=== PATIENT | male | born 1955 | race Caucasian/White ===

== ENCOUNTER 2019-03-15 08:20 | Day surgery (SDC) | payer BC ==
[~2019-03-15 08:20] MED LIST: Lactated Ringers 1,000 ML IV SCH; Sodium Chloride 0.9% 10 ML SDV IV PRN; Sodium Chloride 0.9% 10 ML Syringe FLUSH PRN; Sodium Chloride 0.9% 2.5 ML Syringe FLUSH PRN
[2019-03-15] MEDS ORDERED: Propofol 200 MG/20 ML SDV ONE ×2 (08:31→10:14)
[2019-03-15] MEDS ORDERED: Bupivacaine 0.5% 30 ML SDV ONE (09:44)
[2019-03-15] MEDS ORDERED: Lidocaine 1% 20 ML MDV ONE (09:45)
[2019-03-15] MEDS ORDERED: Heparin Sodium 100 Units/ML 3 ML Syringe ONE ×2 (09:45→11:27)
[2019-03-15] MEDS ORDERED: Iopamidol 200-M 10 ML vial ITHECAL ONE (09:45)
--- NOTE | 2019-03-15 09:59 | PCM.PREANE ---
Preanesthetic Assessment - Anesthesia/Transfusion/Family Hx Anesthesia History: Prior Anesthesia Without Reaction Family History of Anesthesia Reaction: No Transfusion History: No Prior Transfusion(s) Intubation History: Unknown - Review of Systems General: No Symptoms Pulmonary: No Symptoms Cardiovascular: No Symptoms Gastrointestinal: No Symptoms Neurological: No Symptoms Other: Reports: None - Physical Assessment NPO Status Date: 03/15/19 NPO Status Time: 03:00 O2 Sat by Pulse Oximetry: 100 Respiratory Rate: 16 Vital Signs: Last Vital Signs Temp 35.9 C 03/15/19 09:00 Pulse 85 03/15/19 09:00 Resp 16 03/15/19 09:00 BP 128/69 03/15/19 09:00 Pulse Ox 100 03/15/19 09:00 Height: 6 ft Weight: 71.668 kg ASA Class: 2 Mental Status: Alert & Oriented x3 Airway Class: Mallampati = 2 Dentition: Reports: Normal Dentition (small chip front incisor) Thyro-Mental Finger Breadths: 3 Mouth Opening Finger Breadths: 2 (small mouth) ROM/Head Extension: Full Lungs: Clear to Auscultation, Normal Respiratory Effort Cardiovascular: Regular Rate, Regular Rhythm - Allergies Allergies/Adverse Reactions: Allergies Allergy/AdvReac Type Severity Reaction Status Date / Time No Known Allergies Allergy Verified 03/11/19 11:15 - Blood Blood Available: No - Anesthesia Plan Pre-Op Medication Ordered: None - Acknowledgements Anesthesia Type Planned: MAC Pt an Appropriate Candidate for the Planned Anesthesia: Yes Alternatives and Risks of Anesthesia Discussed w Pt/Guardian: Yes Pt/Guardian Understands and Agrees with Anesthesia Plan: Yes PreAnesthesia Questionnaire HEENT History: Reports: None Cardiovascular History: Reports: None Respiratory History: Reports: None Gastrointestinal History: Reports: Other (See Below) Other Gastrointestinal History: colorectal cancer Genitourinary History: Reports: None Musculoskeletal History: Reports: Fracture Other Musculoskeletal History: states hx of multiple fractures Neurological History: Reports: None Psychiatric History: Reports: None Endocrine/Metabolic History: Reports: None Hematologic History: Reports: None Immunologic History: Reports: None Oncologic (Cancer) History: Reports: None Dermatologic History: Reports: None - Past Surgical History Head Surgeries/Procedures: Reports: None HEENT Surgical History: Reports: None Cardiovascular Surgical History: Reports: None Respiratory Surgical History: Reports: None GI Surgical History: Reports: Colostomy, Hernia, Inguinal Male Surgical History: Reports: None Endocrine Surgical History: Reports: None Neurological Surgical History: Reports: None Musculoskeletal Surgical History: Reports: None Oncologic Surgical History: Reports: None Dermatological Surgical History: Reports: None - SUBSTANCE USE Smoking Status *Q: Never Smoker Recreational Drug Use History: No - HOME MEDS Home Medications: Home Meds . [No Known Home Meds] 03/11/19 [History] - CURRENT (IN HOUSE) MEDS Current Meds: Current Medications Lactated Ringer's (Ringers, Lactated) 1,000 mls @ 125 mls/hr IV ASDIRECTED [facility] Last Admin: 03/15/19 08:50 Dose: 125 mls/hr Sodium Chloride (Saline Flush) 10 ml FLUSH ASDIRECTED PRN PRN Reason: Keep Vein Open Sodium Chloride (Saline Flush) 2.5 ml FLUSH ASDIRECTED PRN PRN Reason: Keep Vein Open Sodium Chloride (Saline Flush) 10 ml FLUSH ASDIRECTED PRN PRN Reason: Keep Vein Open Sodium Chloride (Saline Flush) 2.5 ml FLUSH ASDIRECTED PRN PRN Reason: Keep Vein Open Sodium Chloride (Normal Saline) 10 ml IV ASDIRECTED PRN PRN Reason: IV Use Discontinued Medications Bupivacaine HCl (Marcaine 0.5%) Confirm Administered Dose 30 ml .ROUTE .STK-MED ONE Stop: 03/15/19 09:45 Heparin Sodium (Porcine) (Heparin Lock Flush 100 Units/Ml) Confirm Administered Dose 300 unit .ROUTE .STK-MED ONE Stop: 03/15/19 09:46 Iopamidol (Isovue-M 200) Confirm Administered Dose 10 ml ITHECAL .STK-MED ONE Stop: 03/15/19 09:46 Lidocaine HCl (Xylocaine 1%) Confirm Administered Dose 20 ml .ROUTE .STK-MED ONE Stop: 03/15/19 09:46 Propofol (Diprivan 20 Ml) Confirm Administered Dose 200 mg .ROUTE .STK-MED ONE Stop: 03/15/19 08:32
[2019-03-15] MEDS ORDERED: Midazolam 1 MG/ML 2 ML SDV ONE (10:14)
[2019-03-15] MEDS ORDERED: Sodium Chloride 0.9% 20 ML ONE (11:56)
[2019-03-15] MEDS ORDERED: ceFAZolin 1 GM Vial ONE (11:56)
[2019-03-15] MEDS ORDERED: Phenylephrine/Normal Saline 100 MCG/ML 10 ML Syringe ONE (12:05)
[2019-03-15] MEDS ORDERED: fentaNYL 100 MCG/2 ML SDV ONE (12:12)
[2019-03-15] MEDS ORDERED: Octyl 2-Cyanoacrylate 1 Tube ONE (12:23)
--- NOTE | 2019-03-15 12:34 | PCM.OPNOTE ---
- General Post-Op/Procedure Note Date of Surgery/Procedure: 03/15/19 Operative Procedure(s): Port a cath placement Findings: RIJ port placement Pre Op Diagnosis: Colorectal cancer Post-Op Diagnosis: same Anesthesia Technique: General LMA Primary Surgeon: Doreen Erickson Fluid Replacement, Intraop: 1,300 EBL in mLs: 5 Condition: Good
--- NOTE | 2019-03-15 13:10 | CR ---
EXAMINATION: Portable chest radiograph. HISTORY: Portacatheter placement. FINDINGS: The trachea is midline. The cardiomediastinal silhouette is within normal limits. No pulmonary infiltrates, effusions or pneumothorax. Right-sided portacatheter is noted with tip ejecting over the SVC. Osseous structures appear unremarkable. IMPRESSION: No acute cardiopulmonary process.
--- NOTE | 2019-03-15 13:23 | PCM48HPAN ---
Post Anesthesia Note - EVALUATION WITHIN 48HRS OF ANESTHETIC Vital Signs in Normal Range: Yes Patient Participated in Evaluation: Yes Respiratory Function Stable: Yes Airway Patent: Yes Cardiovascular Function Stable: Yes Hydration Status Stable: Yes Pain Control Satisfactory: Yes Nausea and Vomiting Control Satisfactory: Yes Mental Status Recovered: Yes Pulse Rate: 67 SaO2: 97 Resp Rate: 16 Blood Pressure: 114/71
--- NOTE | 2019-03-15 15:39 | CR ---
EXAMINATION: Chest HISTORY: Port-A-Cath placement COMPARISON: None TECHNIQUE: Single view FINDINGS/IMPRESSION: Tip of the right portacatheter projects over the SVC.
--- NOTE | 2019-03-17 06:37 | OR ---
SURGEON: DOREEN ERICKSON MD DATE OF PROCEDURE: 03/15/2019 PREOPERATIVE DIAGNOSIS: Colorectal cancer. POSTOPERATIVE DIAGNOSIS: Colorectal cancer. PROCEDURE PERFORMED: Right internal jugular Port-A-Cath placement. PRIMARY SURGEON: Doreen Erickson MD. ANESTHESIA: General LMA. FLUIDS: 1300 mL of crystalloid. ESTIMATED BLOOD LOSS: 5 mL. FINDINGS: Right internal jugular Port-A-Cath placement under fluoroscopic and ultrasound guidance. COMPLICATIONS: None. INDICATIONS: The patient is a 64-year-old male who was recently diagnosed with advanced colorectal cancer. He came to see me for a port due to the need for chemotherapy. I explained the procedure, expected perioperative course, and risks including bleeding, infection, or damage to surrounding structures including hemothorax or pneumothorax. The patient verbalized understanding and wishes to proceed. PROCEDURE IN DETAIL: The patient was brought into the OR and placed on the OR table in supine position. A time-out was completed verifying the patient's name, age, date of , allergies, and procedure to be performed. General LMA anesthesia was induced. A shoulder roll was placed under the patient's shoulders and both arms were tucked at his side. The neck and chest were prepped and draped in usual standard fashion. Using an ultrasound, I identified the vascular anatomy at the right side of the neck. A photograph was taken of this ultrasound and placed in the patient's chart. I anesthetized the area overlying the right internal jugular vein with 1% lidocaine plain. I then anesthetized the area on the right chest wall and the tubing tract with the same lidocaine. Using ultrasound guidance, I placed a guide needle into the right internal jugular vein. A flush of venous blood was returned. A guidewire was placed down the needle into the superior vena cava. The needle was removed and the C-arm was brought in. This verified placement of the guidewire within the vena cava. I then turned my attention to the right upper chest wall. A 15 blade was used to make a 4 cm incision 2 fingerbreadths below the lateral clavicle. Cautery was used to dissect down to the level of the chest wall. A subcutaneous pocket was then created. A tunneling device was then used to tunnel the catheter tubing from the port site on the chest up to the guidewire insertion site on the neck. A vascular sheath and dilator were then placed over the guidewire. Using fluoroscopic guidance, I dilated up my vascular tract. The dilator and guidewire were removed and the vascular sheath left in place. The catheter tubing was then placed down the vascular sheath into the chest. The vascular sheath was then removed. Fluoroscopy was then used to guide the tubing into the superior vena cava. A good return of venous blood was noted on the opposite end of the catheter tubing. The catheter tubing was then trimmed and placed onto the Port-A-Cath device and locked in place. The port was then placed in the subcutaneous pocket. The port was then accessed and I had good return of venous blood. The port was then locked with 4 mL of heparinized saline. The anterior chest wall cavity was then closed with interrupted 3-0 Vicryl in the subcutaneous fat layer and the skin was closed with a running 4-0 Monocryl stitch. An interrupted 4-0 Monocryl stitch was used to close the insertion site on the neck. The wounds were then covered with Dermabond and sterile dressings were applied. All counts were complete and correct at the end of the case. The DICTATION ENDS HERE YANCI / BEVERLY /[id number]
--- NOTE | 2019-03-17 12:37 | OR ---
SURGEON: ROLANDA LLOYD MD DATE OF PROCEDURE: 03/15/2019 ADDENDUM: The patient was taken to the PACU in stable condition. A postoperative chest x- ray showed good position of the Port-A-Cath device in the SVC with no immediate complications. YANCI PAUL /[id number]
== END 2019-03-15 13:35 | disposition home or self-care (01) ==
LOC: MW.SDS 08:20
PROVIDERS: ATTEND Surgery
DX: C20 Malignant neoplasm of rectum (principal); Z93.3 Colostomy status
CPT/HCPCS: 36561; 71045; 76000; A9270; J0690; J1642; J2001; J2250; J2370; J2704; J3010; J3490; J7120; 00532; Q9966

== ENCOUNTER 2019-05-21 13:34 | Observation (INO) | payer BC ==
[2019-05-21] MEDS ORDERED: Sodium Chloride 0.9% 1,000 ML IV ONE (13:49)
--- NOTE | 2019-05-21 13:56 | EDM.PDOC ---
ED HPI GENERAL MEDICAL PROBLEM - General Chief Complaint: General Stated Complaint: SICK Time Seen by Provider: 05/21/19 13:35 Source of Information: Reports: Patient History Limitations: Reports: No Limitations - History of Present Illness INITIAL COMMENTS - FREE TEXT/NARRATIVE: History of present illness: []Patient has a recent history of cancer on his fourth round of chemotherapy. He had a fever of 103.5 yesterday and a temperature to 102.4 today in oncology clinic. He was sent to the ED for further evaluation of his fever. Review of systems: As per history of present illness and below otherwise all systems reviewed and negative. Past medical history: As per history of present illness and as reviewed below otherwise noncontributory. Surgical history: As per history of present illness and as reviewed below otherwise noncontributory. Social history: No reported history of drug or alcohol abuse. Family history: As per history of present illness and as reviewed below otherwise noncontributory. Physical exam: General: Well developed, well nourished in NAD HEENT: Atraumatic, normocephalic, pupils reactive, negative for conjunctival pallor or scleral icterus, mucous membranes moist, throat clear, neck supple, nontender, trachea midline. Lungs: Clear to auscultation, breath sounds equal bilaterally, chest nontender. Heart: S1S2, regular, negative for clicks, rubs, or JVD. Abdomen: Showing Colostomy, NABS, nondistended, nontender. Negative for masses or hepatosplenomegaly. Negative for costovertebral tenderness. Pelvis: Stable nontender. Genitourinary: Deferred. Rectal: Deferred. Extremities: Atraumatic, negative for cords or calf pain. Neurovascular unremarkable. Neuro: Awake, alert, oriented. Cranial nerves II through XII unremarkable. Cerebellum unremarkable. Motor and sensory unremarkable throughout. Exam nonfocal. Skin:warm and dry Diagnostics: Chest x-ray, blood cultures, CBC, chemistry, lactate acid, UA, urine culture Therapeutics: Levaquin IV ED Course: stable, Dr. Kelly agrees to admit patient or IV antibiotics Impression: Fever on chemotherapy Prescriptions: None Plan: Admit for IV antibiotics until culture results Definitive disposition and diagnosis as appropriate pending reevaluation and review of above. - Related Data Allergies Allergy/AdvReac Type Severity Reaction Status Date / Time No Known Allergies Allergy Verified 05/21/19 17:17 Home Meds: Home Meds Ondansetron HCl [Zofran] 8 mg PO Q8H PRN 05/21/19 [History] Prochlorperazine Maleate [Compazine] 10 mg PO Q6H PRN 05/21/19 [History] Past Medical History HEENT History: Reports: None Cardiovascular History: Reports: None Respiratory History: Reports: None Gastrointestinal History: Reports: Other (See Below) Other Gastrointestinal History: colorectal cancer Genitourinary History: Reports: None Musculoskeletal History: Reports: Fracture Other Musculoskeletal History: states hx of multiple fractures Neurological History: Reports: None Psychiatric History: Reports: None Endocrine/Metabolic History: Reports: None Hematologic History: Reports: None Immunologic History: Reports: None Oncologic (Cancer) History: Reports: None Dermatologic History: Reports: None - Past Surgical History Head Surgeries/Procedures: Reports: None HEENT Surgical History: Reports: None Cardiovascular Surgical History: Reports: None Respiratory Surgical History: Reports: None GI Surgical History: Reports: Colostomy, Hernia, Inguinal Male Surgical History: Reports: None Endocrine Surgical History: Reports: None Neurological Surgical History: Reports: None Musculoskeletal Surgical History: Reports: None Oncologic Surgical History: Reports: None Dermatological Surgical History: Reports: None ED ROS GENERAL - Review of Systems Review Of Systems: See Below ED EXAM, GENERAL - Physical Exam Exam: See Below Course - Vital Signs Last Recorded V/S: Last Vital Signs Temp 98.3 F 05/21/19 16:25 Pulse 114 H 05/21/19 16:25 Resp 16 05/21/19 16:25 BP 89/52 L 05/21/19 16:25 Pulse Ox 95 05/21/19 16:25 - Orders/Labs/Meds Orders: Active Orders 24 hr Category Date Time Status Patient Status [ADT] Stat ADT 05/21/19 15:03 Active CULTURE BLOOD [BC] Stat Lab 05/21/19 13:45 Received CULTURE BLOOD [BC] Stat Lab 05/21/19 14:00 Received CULTURE URINE [RM] Routine Lab 05/21/19 14:35 Received Blood Culture x2 Reflex Set [OM.PC] Stat Oth 05/21/19 13:49 Ordered Medication Orders Heparin Sodium (Porcine) (Heparin Sodium) 5,000 units SUBCUT Q8H [facility] Meropenem/Sodium Chloride 1 gm (/ Premix) 50 mls @ 100 mls/hr IV Q8H [facility] Vancomycin HCl 1 gm/ Sodium (Chloride) 250 mls @ 250 mls/hr IV Q12H [facility] Sodium Chloride (Normal Saline) 1,000 mls @ 125 mls/hr IV ASDIRECTED [facility] Last Admin: 05/21/19 18:24 Dose: 125 mls/hr Vancomycin HCl (Pharmacy To Dose - Vancomycin) 1 dose .XX ASDIRECTED [facility] Labs: Laboratory Tests 05/21/19 05/21/19 05/21/19 Range/Units 13:45 13:45 13:45 WBC 3.44 L (4.0-11.0) K/uL RBC 4.69 (4.50-5.90) M/uL Hgb 11.9 L (13.0-17.0) g/dL Hct 38.6 (38.0-50.0) % MCV 82.3 (80.0-98.0) fL MCH 25.4 L (27.0-32.0) pg MCHC 30.8 L (31.0-37.0) g/dL RDW Std Deviation 69.7 H (28.0-62.0) fl RDW Coeff of Eyad 24 H (11.0-15.0) % Plt Count 227 (150-400) K/uL MPV 9.00 (7.40-12.00) fL Neut % (Auto) 73.8 (48.0-80.0) % Lymph % (Auto) 15.4 L (16.0-40.0) % [place] % (Auto) 3.5 (0.0-15.0) % Eos % (Auto) 6.4 (0.0-7.0) % Baso % (Auto) 0.9 (0.0-1.5) % Neut # (Auto) 2.5 (1.4-5.7) K/uL Lymph # (Auto) 0.5 L (0.6-2.4) K/uL [place] # (Auto) 0.1 (0.0-0.8) K/uL Eos # (Auto) 0.2 (0.0-0.7) K/uL Baso # (Auto) 0.0 (0.0-0.1) K/uL Nucleated RBC % 0.0 /100WBC Nucleated RBCs # 0 K/uL Lactate 2.7 H (0.20-2.00) mmol/L Sodium 137 (136-148) mmol/L Potassium 4.2 (3.5-5.1) mmol/L Chloride 102 (98-107) mmol/L Carbon Dioxide 23.6 (21.0-32.0) mmol/L BUN 13 (7.0-18.0) mg/dL Creatinine 1.1 (0.8-1.3) mg/dL Est Cr Clr Drug Dosing 71.82 mL/min Estimated GFR (MDRD) > 60.0 ml/min Glucose 95 (74-106) mg/dL Calcium 8.6 (8.5-10.1) mg/dL Total Bilirubin 0.3 (0.2-1.0) mg/dL AST 20 (15-37) IU/L ALT 18 (14-63) IU/L Alkaline Phosphatase 100 (46-116) U/L Total Protein 6.9 (6.4-8.2) g/dL Albumin 2.7 L (3.4-5.0) g/dL Globulin 4.2 H (2.6-4.0) g/dL Albumin/Globulin Ratio 0.6 L (0.9-1.6) Urine Color Urine Appearance Urine pH (5.0-8.0) Ur Specific [place] (1.001-1.035) Urine Protein (NEGATIVE) mg/dL Urine Glucose (UA) (NEGATIVE) mg/dL Urine Ketones (NEGATIVE) mg/dL Urine Occult Blood (NEGATIVE) Urine Nitrite (NEGATIVE) Urine Bilirubin (NEGATIVE) Urine Urobilinogen (<2.0) EU/dL Ur Leukocyte Esterase (NEGATIVE) Urine RBC (0-2/HPF) Urine WBC (0-5/HPF) Ur Epithelial Cells (NONE-FEW) Urine Bacteria (NEGATIVE) 05/21/19 Range/Units 14:35 WBC (4.0-11.0) K/uL RBC (4.50-5.90) M/uL Hgb (13.0-17.0) g/dL Hct (38.0-50.0) % MCV (80.0-98.0) fL MCH (27.0-32.0) pg MCHC (31.0-37.0) g/dL RDW Std Deviation (28.0-62.0) fl RDW Coeff of Eyad (11.0-15.0) % Plt Count (150-400) K/uL MPV (7.40-12.00) fL Neut % (Auto) (48.0-80.0) % Lymph % (Auto) (16.0-40.0) % [place] % (Auto) (0.0-15.0) % Eos % (Auto) (0.0-7.0) % Baso % (Auto) (0.0-1.5) % Neut # (Auto) (1.4-5.7) K/uL Lymph # (Auto) (0.6-2.4) K/uL [place] # (Auto) (0.0-0.8) K/uL Eos # (Auto) (0.0-0.7) K/uL Baso # (Auto) (0.0-0.1) K/uL Nucleated RBC % /100WBC Nucleated RBCs # K/uL Lactate (0.20-2.00) mmol/L Sodium (136-148) mmol/L Potassium (3.5-5.1) mmol/L Chloride (98-107) mmol/L Carbon Dioxide (21.0-32.0) mmol/L BUN (7.0-18.0) mg/dL Creatinine (0.8-1.3) mg/dL Est Cr Clr Drug Dosing mL/min Estimated GFR (MDRD) ml/min Glucose (74-106) mg/dL Calcium (8.5-10.1) mg/dL Total Bilirubin (0.2-1.0) mg/dL AST (15-37) IU/L ALT (14-63) IU/L Alkaline Phosphatase (46-116) U/L Total Protein (6.4-8.2) g/dL Albumin (3.4-5.0) g/dL Globulin (2.6-4.0) g/dL Albumin/Globulin Ratio (0.9-1.6) Urine Color YELLOW Urine Appearance SLT CLOUDY Urine pH 5.0 (5.0-8.0) Ur Specific [place] 1.020 (1.001-1.035) Urine Protein TRACE H (NEGATIVE) mg/dL Urine Glucose (UA) NEGATIVE (NEGATIVE) mg/dL Urine Ketones NEGATIVE (NEGATIVE) mg/dL Urine Occult Blood MODERATE H (NEGATIVE) Urine Nitrite NEGATIVE (NEGATIVE) Urine Bilirubin NEGATIVE (NEGATIVE) Urine Urobilinogen 0.2 (<2.0) EU/dL Ur Leukocyte Esterase LARGE H (NEGATIVE) Urine RBC 5-10 (0-2/HPF) Urine WBC 90-100 (0-5/HPF) Ur Epithelial Cells OCCASIONAL (NONE-FEW) Urine Bacteria FEW (NEGATIVE) Meds: Medications Generic Name Dose Route Start Last Admin Trade Name Freq PRN Reason Stop Dose Admin Heparin Sodium (Porcine) 5,000 units 05/21/19 22:00 Heparin Sodium SUBCUT Q8H [facility] Meropenem/Sodium Chloride 1 gm 50 mls @ 100 mls/hr 05/21/19 18:00 / Premix IV Q8H [facility] Vancomycin HCl 1 gm/ Sodium 250 mls @ 250 mls/hr 05/21/19 19:00 Chloride IV Q12H [facility] Sodium Chloride 1,000 mls @ 125 mls/hr 05/21/19 18:00 05/21/19 18:24 Normal Saline IV 125 mls/hr ASDIRECTED [facility] Administration Vancomycin HCl 1 dose 05/21/19 17:45 Pharmacy To Dose - Vancomycin .XX ASDIRECTED [facility] Discontinued Medications Generic Name Dose Route Start Last Admin Trade Name Freq PRN Reason Stop Dose Admin Acetaminophen 650 mg 05/21/19 14:35 05/21/19 15:24 Tylenol PO 05/21/19 14:36 650 mg NOW ONE Administration Sodium Chloride 1,000 mls @ 999 mls/hr 05/21/19 13:49 05/21/19 14:21 Normal Saline IV 05/21/19 14:49 999 mls/hr .Bolus ONE Administration Levofloxacin/Dextrose 500 mg/ 100 mls @ 100 mls/hr 05/21/19 14:09 05/21/19 14 :22 Premix IV 05/21/19 15:08 100 mls/hr ONETIME ONE Administration Departure - Departure Time of Disposition: 16:00 Disposition: Admitted As Inpatient 66 Condition: Good Clinical Impression: Fever Qualifiers: Fever type: unspecified Qualified Code(s): R50.9 - Fever, unspecified - Discharge Information *PRESCRIPTION DRUG MONITORING PROGRAM REVIEWED*: No *COPY OF PRESCRIPTION DRUG MONITORING REPORT IN PATIENT TUCKER: No - My Orders Last 24 Hours: My Active Orders 05/21/19 13:45 CULTURE BLOOD [BC] Stat 05/21/19 13:49 Blood Culture x2 Reflex Set [OM.PC] Stat 05/21/19 14:00 CULTURE BLOOD [BC] Stat 05/21/19 14:35 CULTURE URINE [RM] Routine 05/21/19 15:03 Patient Status [ADT] Stat - Assessment/Plan Last 24 Hours: My Active Orders 05/21/19 13:45 CULTURE BLOOD [BC] Stat 05/21/19 13:49 Blood Culture x2 Reflex Set [OM.PC] Stat 05/21/19 14:00 CULTURE BLOOD [BC] Stat 05/21/19 14:35 CULTURE URINE [RM] Routine 05/21/19 15:03 Patient Status [ADT] Stat
[2019-05-21] MEDS ORDERED: Levofloxacin/Dextrose 5%-Water 500 MG in Premix Bag 1 BAG IV ONE (14:09)
[2019-05-21 14:24] LABS: BLOOD UREA NITROGEN,BUN 13 mg/dL (7.0-18.0); CARBON DIOXIDE,CO2 23.6 mmol/L (21.0-32.0); CHLORIDE,CL 102 mmol/L (98-107); GLUCOSE RANDOM 95 mg/dL (74-106); POTASSIUM,K 4.2 mmol/L (3.5-5.1); SODIUM,NA 137 mmol/L (136-148)
[2019-05-21] MEDS ORDERED: Acetaminophen 325 MG Tab PO ONE (14:35)
--- NOTE | 2019-05-21 14:44 | CR ---
Chest: Portable view of the chest was obtained. Comparison: Prior chest x-ray of 03/15/19. Heart size appears within normal limits for portable technique. Tortuous thoracic aorta is noted. Right-sided infusion catheter is seen. Lungs are clear with no acute parenchymal change. Deformity of the left clavicle is seen compatible with old fracture. Mild deformity is seen of the distal right clavicle also felt compatible with old fracture. Inferior spurring is noted within both acromioclavicular joints. Impression: Nothing acute is appreciated on portable chest x-ray. Diagnostic code #2 MTDD
--- NOTE | 2019-05-21 17:48 | PCM.HP.2 ---
H&P History of Present Illness - General Date of Service: 05/21/19 Admit Problem/Dx: Admission Diagnosis/Problem Admission Diagnosis/Problem Fever - History of Present Illness Initial Comments - Free Text/Narative: 64 yo male with pmh of colorectal cancer, s/p bowel resection with colostomy due to obstructing mass. Patient reports they have not removed all the tumor and is currently receiving chemotherapy. He presented to the ED with complaints of fever. He also reports over the past several day increase in his ostomy output. HE denies any abdominal pain, cough, or shortness of breath. - Related Data Allergies/Adverse Reactions: Allergies Allergy/AdvReac Type Severity Reaction Status Date / Time No Known Allergies Allergy Verified 05/21/19 17:17 Home Medications: Home Meds Ondansetron HCl [Zofran] 8 mg PO Q8H PRN 05/21/19 [History] Prochlorperazine Maleate [Compazine] 10 mg PO Q6H PRN 05/21/19 [History] Past Medical History HEENT History: Reports: None Cardiovascular History: Reports: None Respiratory History: Reports: None Gastrointestinal History: Reports: Other (See Below) Other Gastrointestinal History: Colorectal cancer Genitourinary History: Reports: None Musculoskeletal History: Reports: Fracture Other Musculoskeletal History: States hx of multiple fractures Neurological History: Reports: None Psychiatric History: Reports: None Endocrine/Metabolic History: Reports: None Hematologic History: Reports: None Immunologic History: Reports: None Oncologic (Cancer) History: Reports: None Other Oncologic History: Rectal cancer Dermatologic History: Reports: None - Infectious Disease History Infectious Disease History: Reports: None - Past Surgical History Head Surgeries/Procedures: Reports: None HEENT Surgical History: Reports: None Cardiovascular Surgical History: Reports: None Respiratory Surgical History: Reports: None GI Surgical History: Reports: Colostomy, Hernia, Inguinal Other GI Surgeries/Procedures: Surgery in [place] in January 2019 for colostomy. Male Surgical History: Reports: None Endocrine Surgical History: Reports: None Neurological Surgical History: Reports: None Musculoskeletal Surgical History: Reports: None Oncologic Surgical History: Reports: None Dermatological Surgical History: Reports: None Social & Family History - Family History Family Medical History: Noncontributory - Tobacco Use Smoking Status *Q: Never Smoker Second Hand Smoke Exposure: Yes - Caffeine Use Caffeine Use: Reports: Soda, Tea - Recreational Drug Use Recreational Drug Use: No H&P Review of Systems - Review of Systems: Review Of Systems: ROS reveals no pertinent complaints other than HPI. Exam - Exam Exam: See Below - Vital Signs Vital Signs: Last Vital Signs Temp 36.8 C 05/21/19 16:25 Pulse 114 H 05/21/19 16:25 Resp 16 05/21/19 16:25 BP 89/52 L 05/21/19 16:25 Pulse Ox 95 05/21/19 16:25 Weight: 73.754 kg - Exam General: Alert, Oriented Lungs: Clear to Auscultation, Normal Respiratory Effort Cardiovascular: Regular Rate, Regular Rhythm GI/Abdominal Exam: Normal Bowel Sounds, Soft, Non-Tender, No Organomegaly, Other (colostomy in place) Extremities: Non-Tender, No Pedal Edema Skin: Warm, Dry, Intact - Patient Data Lab Results Last 24 hrs: Laboratory Results - last 24 hr 05/21/19 05/21/19 05/21/19 Range/Units 13:45 13:45 13:45 WBC 3.44 L (4.0-11.0) K/uL RBC 4.69 (4.50-5.90) M/uL Hgb 11.9 L (13.0-17.0) g/dL Hct 38.6 (38.0-50.0) % MCV 82.3 (80.0-98.0) fL MCH 25.4 L (27.0-32.0) pg MCHC 30.8 L (31.0-37.0) g/dL RDW Std Deviation 69.7 H (28.0-62.0) fl RDW Coeff of Eyad 24 H (11.0-15.0) % Plt Count 227 (150-400) K/uL MPV 9.00 (7.40-12.00) fL Neut % (Auto) 73.8 (48.0-80.0) % Lymph % (Auto) 15.4 L (16.0-40.0) % Bailey % (Auto) 3.5 (0.0-15.0) % Eos % (Auto) 6.4 (0.0-7.0) % Baso % (Auto) 0.9 (0.0-1.5) % Neut # (Auto) 2.5 (1.4-5.7) K/uL Lymph # (Auto) 0.5 L (0.6-2.4) K/uL Bailey # (Auto) 0.1 (0.0-0.8) K/uL Eos # (Auto) 0.2 (0.0-0.7) K/uL Baso # (Auto) 0.0 (0.0-0.1) K/uL Nucleated RBC % 0.0 /100WBC Nucleated RBCs # 0 K/uL Lactate 2.7 H (0.20-2.00) mmol/L Sodium 137 (136-148) mmol/L Potassium 4.2 (3.5-5.1) mmol/L Chloride 102 (98-107) mmol/L Carbon Dioxide 23.6 (21.0-32.0) mmol/L BUN 13 (7.0-18.0) mg/dL Creatinine 1.1 (0.8-1.3) mg/dL Est Cr Clr Drug Dosing 71.82 mL/min Estimated GFR (MDRD) > 60.0 ml/min Glucose 95 (74-106) mg/dL Calcium 8.6 (8.5-10.1) mg/dL Total Bilirubin 0.3 (0.2-1.0) mg/dL AST 20 (15-37) IU/L ALT 18 (14-63) IU/L Alkaline Phosphatase 100 (46-116) U/L Total Protein 6.9 (6.4-8.2) g/dL Albumin 2.7 L (3.4-5.0) g/dL Globulin 4.2 H (2.6-4.0) g/dL Albumin/Globulin Ratio 0.6 L (0.9-1.6) Urine Color Urine Appearance Urine pH (5.0-8.0) Ur Specific Sutton (1.001-1.035) Urine Protein (NEGATIVE) mg/dL Urine Glucose (UA) (NEGATIVE) mg/dL Urine Ketones (NEGATIVE) mg/dL Urine Occult Blood (NEGATIVE) Urine Nitrite (NEGATIVE) Urine Bilirubin (NEGATIVE) Urine Urobilinogen (<2.0) EU/dL Ur Leukocyte Esterase (NEGATIVE) Urine RBC (0-2/HPF) Urine WBC (0-5/HPF) Ur Epithelial Cells (NONE-FEW) Urine Bacteria (NEGATIVE) 10/04/19 Range/Units 14:35 WBC (4.0-11.0) K/uL RBC (4.50-5.90) M/uL Hgb (13.0-17.0) g/dL Hct (38.0-50.0) % MCV (80.0-98.0) fL MCH (27.0-32.0) pg MCHC (31.0-37.0) g/dL RDW Std Deviation (28.0-62.0) fl RDW Coeff of Eyad (11.0-15.0) % Plt Count (150-400) K/uL MPV (7.40-12.00) fL Neut % (Auto) (48.0-80.0) % Lymph % (Auto) (16.0-40.0) % Bailey % (Auto) (0.0-15.0) % Eos % (Auto) (0.0-7.0) % Baso % (Auto) (0.0-1.5) % Neut # (Auto) (1.4-5.7) K/uL Lymph # (Auto) (0.6-2.4) K/uL Bailey # (Auto) (0.0-0.8) K/uL Eos # (Auto) (0.0-0.7) K/uL Baso # (Auto) (0.0-0.1) K/uL Nucleated RBC % /100WBC Nucleated RBCs # K/uL Lactate (0.20-2.00) mmol/L Sodium (136-148) mmol/L Potassium (3.5-5.1) mmol/L Chloride (98-107) mmol/L Carbon Dioxide (21.0-32.0) mmol/L BUN (7.0-18.0) mg/dL Creatinine (0.8-1.3) mg/dL Est Cr Clr Drug Dosing mL/min Estimated GFR (MDRD) ml/min Glucose (74-106) mg/dL Calcium (8.5-10.1) mg/dL Total Bilirubin (0.2-1.0) mg/dL AST (15-37) IU/L ALT (14-63) IU/L Alkaline Phosphatase (46-116) U/L Total Protein (6.4-8.2) g/dL Albumin (3.4-5.0) g/dL Globulin (2.6-4.0) g/dL Albumin/Globulin Ratio (0.9-1.6) Urine Color YELLOW Urine Appearance SLT CLOUDY Urine pH 5.0 (5.0-8.0) Ur Specific Sutton 1.020 (1.001-1.035) Urine Protein TRACE H (NEGATIVE) mg/dL Urine Glucose (UA) NEGATIVE (NEGATIVE) mg/dL Urine Ketones NEGATIVE (NEGATIVE) mg/dL Urine Occult Blood MODERATE H (NEGATIVE) Urine Nitrite NEGATIVE (NEGATIVE) Urine Bilirubin NEGATIVE (NEGATIVE) Urine Urobilinogen 0.2 (<2.0) EU/dL Ur Leukocyte Esterase LARGE H (NEGATIVE) Urine RBC 5-10 (0-2/HPF) Urine WBC 90-100 (0-5/HPF) Ur Epithelial Cells OCCASIONAL (NONE-FEW) Urine Bacteria FEW (NEGATIVE) Result Diagrams: 05/22/19 05:50 05/22/19 05:50 Problem List Initiated/Reviewed/Updated: Yes Orders Last 24hrs: Active Orders 24 hr Category Date Time Status Patient Status [ADT] Stat ADT 05/21/19 15:03 Active Antiembolic Devices [RC] PER UNIT ROUTINE Care 05/21/19 17:47 Ordered Oxygen Therapy [RC] PRN Care 05/21/19 17:47 Ordered Up ad Teresa [RC] ASDIRECTED Care 05/21/19 17:46 Ordered VTE/DVT Education [RC] PER UNIT ROUTINE Care 05/21/19 17:47 Ordered Vital Signs [RC] Q4H Care 05/21/19 17:47 Ordered Regular Diet [DIET] Diet 05/21/19 Dinner Active Abdomen Pelvis wo Cont [CT] Routine Exams 05/21/19 17:29 Ordered BASIC METABOLIC PANEL,BMP [CHEM] AM Lab 05/22/19 05:11 Ordered BASIC METABOLIC PANEL,BMP [CHEM] AM Lab 05/23/19 05:11 Ordered CBC WITH AUTO DIFF [HEME] AM Lab 05/22/19 05:11 Ordered CBC WITH AUTO DIFF [HEME] AM Lab 05/23/19 05:11 Ordered CULTURE BLOOD [BC] Stat Lab 05/21/19 13:45 Received CULTURE BLOOD [BC] Stat Lab 05/21/19 14:00 Received CULTURE STOOL + CAMPY+SHIGATOX [RM] Routine Lab 05/21/19 17:47 Ordered CULTURE URINE [RM] Routine Lab 05/21/19 14:35 Received Clostridium Difficile [CDIFF TOX A+B] [OP] Routine Lab 05/21/19 17:47 Ordered LACTATE WITH REFLEX [BG] Q5H Lab 05/21/19 17:29 Ordered LACTATE WITH REFLEX [BG] Q5H Lab 05/21/19 22:29 Ordered LACTATE WITH REFLEX [BG] Q5H Lab 05/22/19 03:29 Ordered LACTATE WITH REFLEX [BG] Q5H Lab 05/22/19 08:29 Ordered WBC, STOOL [OP] Routine Lab 05/21/19 17:47 Ordered Heparin Sodium Med 05/21/19 18:00 Ordered 5,000 units SUBCUT Q8H Meropenem [Merrem] 1 gm Med 05/21/19 17:45 Ordered Sodium Chloride 0.9% [Normal Saline] 100 ml IV Q8H Pharmacy to Dose - Vancomycin Med 05/21/19 17:45 Ordered 1 dose .XX ASDIRECTED Sodium Chloride 0.9% @ 125 MLS/HR (1000ml) Med 05/21/19 18:00 Ordered Sodium Chloride 0.9% [Normal Saline] 1,000 ml IV ASDIRECTED Vancomycin 1 gm Med 05/21/19 19:00 Active Sodium Chloride 0.9% [Normal Saline (AdvBag)] 250 ml IV Q12H Blood Culture x2 Reflex Set [OM.PC] Stat Oth 05/21/19 13:49 Ordered Isolation [COMM] Stat Oth 05/21/19 17:48 Ordered Sequential Compression Device [OM.PC] Per Unit Routine Oth 05/21/19 17:47 Ordered Resuscitation Status Routine Resus Stat 05/21/19 17:46 Ordered Medication Orders Meropenem/Sodium Chloride 1 gm (/ Premix) 50 mls @ 100 mls/hr IV Q8H [facility] Vancomycin HCl 1 gm/ Sodium (Chloride) 250 mls @ 250 mls/hr IV Q12H [facility] Vancomycin HCl (Pharmacy To Dose - Vancomycin) 1 dose .XX ASDIRECTED [facility] Assessment/Plan Comment:: 64 yo male admitted for sepsis from UTI. Patient is immunocompromised due to chemotherapy. We will treat with broad spectrum antibitoics with vancomycin and meropenum. We hydrate adequately with IV fluids and trend lactic acid. Cultures are pending.
[2019-05-21] MEDS: Sodium Chloride 0.9% 1,000 ML IV SCH (18:24)
[2019-05-21] MEDS: Meropenem Premix 1 GM in Premix Bag 1 BAG IV SCH (18:49)
--- NOTE | 2019-05-21 19:19 | CT ---
INDICATION: Sepsis. Fever. Rule out stones. TECHNIQUE: Volumetric helical scanning of the abdomen and pelvis was performed without contrast material. Coronal and sagittal reconstructions were obtained. COMPARISON: None. FINDINGS: A left lower quadrant loop colostomy is demonstrated. Marked wall thickening of the mid to distal sigmoid colon with stranding of the surrounding fat is demonstrated as result of inflammation and/or neoplasm. The bowel is otherwise unremarkable. No urinary tract stone is evident. Both ureters appear to be obstructed to some degree by the inflammatory/neoplastic process in the pelvis. Mild to moderate hydroureter is noted on the left and mild hydroureter is noted on the right. There appears to be mild hydronephrosis bilaterally as well as parapelvic renal cysts bilaterally. Mild stranding about the left kidney is demonstrated. The renal parenchyma is unremarkable. The fat plane between the sigmoid colon and bladder is lost at the superior bladder wall is thickened. The prostate is unremarkable. No free fluid is evident. The liver is normal in size, shape and attenuation. No bile duct dilation is evident. The spleen is mildly enlarged. The adrenal glands are unremarkable. The pancreas is within normal limits. No lymphadenopathy is evident. The lung bases are clear. The heart is normal in size. IMPRESSION: 1. Left lower quadrant loop colostomy. 2. Marked wall thickening of the mid to distal sigmoid colon with stranding in the surrounding fat due to inflammation and/or neoplasm. 3. Both ureters partially obstructed by the pelvic inflammatory/neoplastic process, left greater than right. 4. Abnormal sigmoid colon contiguous with the superior bladder wall with bladder wall thickening. Fat plane between the sigmoid and bladder disrupted. 5. Mild splenomegaly. 6. Parapelvic renal cysts bilaterally. Please note that all CT scans at this facility use dose modulation, iterative reconstruction, and/or weight-based dosing when appropriate to reduce radiation dose to as low as reasonably achievable. Dictated by Philip Hope MD @ May 21 2019 6:53PM Signed by Dr. Philip Hope @ May 21 2019 7:17PM
[2019-05-21] MEDS: Heparin Sodium 5,000 Units/ML Vial SUBCUT SCH (23:05)
[2019-05-22] MEDS: Meropenem Premix 1 GM in Premix Bag 1 BAG IV SCH ×3 (01:48→18:02)
[2019-05-22] MEDS: Sodium Chloride 0.9% 1,000 ML IV SCH ×3 (04:14→23:14)
[2019-05-22] MEDS: Heparin Sodium 5,000 Units/ML Vial SUBCUT SCH ×3 (06:17→21:28)
[2019-05-22 06:50] LABS: BLOOD UREA NITROGEN,BUN 14 mg/dL (7.0-18.0); CARBON DIOXIDE,CO2 24.2 mmol/L (21.0-32.0); CHLORIDE,CL 104 mmol/L (98-107); GLUCOSE RANDOM 94 mg/dL (74-106); SODIUM,NA 136 mmol/L (136-148)
--- NOTE | 2019-05-22 10:10 | PCM.PN ---
- General Info Date of Service: 05/22/19 - Review of Systems Systems Review Comment:: feeling better, no fevers. - Patient Data Vitals - Most Recent: Last Vital Signs Temp 37.1 C 05/22/19 07:50 Pulse 67 05/22/19 07:50 Resp 16 05/22/19 07:50 BP 115/59 L 05/22/19 07:50 Pulse Ox 95 05/22/19 07:50 Weight - Most Recent: 73.754 kg I&O - Last 24 Hours: Intake & Output 05/21/19 05/22/19 05/22/19 22:59 06:59 14:59 Intake Total 100 1986 Output Total 1250 Balance 100 736 Lab Results Last 24 Hours: Laboratory Results - last 24 hr 05/21/19 05/21/19 05/21/19 Range/Units 13:45 13:45 13:45 WBC 3.44 L (4.0-11.0) K/uL RBC 4.69 (4.50-5.90) M/uL Hgb 11.9 L (13.0-17.0) g/dL Hct 38.6 (38.0-50.0) % MCV 82.3 (80.0-98.0) fL MCH 25.4 L (27.0-32.0) pg MCHC 30.8 L (31.0-37.0) g/dL RDW Std Deviation 69.7 H (28.0-62.0) fl RDW Coeff of Eyad 24 H (11.0-15.0) % Plt Count 227 (150-400) K/uL MPV 9.00 (7.40-12.00) fL Neut % (Auto) 73.8 (48.0-80.0) % Lymph % (Auto) 15.4 L (16.0-40.0) % Hitchcock % (Auto) 3.5 (0.0-15.0) % Eos % (Auto) 6.4 (0.0-7.0) % Baso % (Auto) 0.9 (0.0-1.5) % Neut # (Auto) 2.5 (1.4-5.7) K/uL Lymph # (Auto) 0.5 L (0.6-2.4) K/uL Hitchcock # (Auto) 0.1 (0.0-0.8) K/uL Eos # (Auto) 0.2 (0.0-0.7) K/uL Baso # (Auto) 0.0 (0.0-0.1) K/uL Nucleated RBC % 0.0 /100WBC Nucleated RBCs # 0 K/uL Lactate 2.7 H (0.20-2.00) mmol/L Sodium 137 (136-148) mmol/L Potassium 4.2 (3.5-5.1) mmol/L Chloride 102 (98-107) mmol/L Carbon Dioxide 23.6 (21.0-32.0) mmol/L BUN 13 (7.0-18.0) mg/dL Creatinine 1.1 (0.8-1.3) mg/dL Est Cr Clr Drug Dosing 71.82 mL/min Estimated GFR (MDRD) > 60.0 ml/min Glucose 95 (74-106) mg/dL Calcium 8.6 (8.5-10.1) mg/dL Total Bilirubin 0.3 (0.2-1.0) mg/dL AST 20 (15-37) IU/L ALT 18 (14-63) IU/L Alkaline Phosphatase 100 (46-116) U/L Total Protein 6.9 (6.4-8.2) g/dL Albumin 2.7 L (3.4-5.0) g/dL Globulin 4.2 H (2.6-4.0) g/dL Albumin/Globulin Ratio 0.6 L (0.9-1.6) Urine Color Urine Appearance Urine pH (5.0-8.0) Ur Specific [place] (1.001-1.035) Urine Protein (NEGATIVE) mg/dL Urine Glucose (UA) (NEGATIVE) mg/dL Urine Ketones (NEGATIVE) mg/dL Urine Occult Blood (NEGATIVE) Urine Nitrite (NEGATIVE) Urine Bilirubin (NEGATIVE) Urine Urobilinogen (<2.0) EU/dL Ur Leukocyte Esterase (NEGATIVE) Urine RBC (0-2/HPF) Urine WBC (0-5/HPF) Ur Epithelial Cells (NONE-FEW) Urine Bacteria (NEGATIVE) 05/21/19 05/21/19 05/21/19 Range/Units 14:35 18:20 22:43 WBC (4.0-11.0) K/uL RBC (4.50-5.90) M/uL Hgb (13.0-17.0) g/dL Hct (38.0-50.0) % MCV (80.0-98.0) fL MCH (27.0-32.0) pg MCHC (31.0-37.0) g/dL RDW Std Deviation (28.0-62.0) fl RDW Coeff of Eyad (11.0-15.0) % Plt Count (150-400) K/uL MPV (7.40-12.00) fL Neut % (Auto) (48.0-80.0) % Lymph % (Auto) (16.0-40.0) % Hitchcock % (Auto) (0.0-15.0) % Eos % (Auto) (0.0-7.0) % Baso % (Auto) (0.0-1.5) % Neut # (Auto) (1.4-5.7) K/uL Lymph # (Auto) (0.6-2.4) K/uL Hitchcock # (Auto) (0.0-0.8) K/uL Eos # (Auto) (0.0-0.7) K/uL Baso # (Auto) (0.0-0.1) K/uL Nucleated RBC % /100WBC Nucleated RBCs # K/uL Lactate 2.0 1.5 (0.20-2.00) mmol/L Sodium (136-148) mmol/L Potassium (3.5-5.1) mmol/L Chloride (98-107) mmol/L Carbon Dioxide (21.0-32.0) mmol/L BUN (7.0-18.0) mg/dL Creatinine (0.8-1.3) mg/dL Est Cr Clr Drug Dosing mL/min Estimated GFR (MDRD) ml/min Glucose (74-106) mg/dL Calcium (8.5-10.1) mg/dL Total Bilirubin (0.2-1.0) mg/dL AST (15-37) IU/L ALT (14-63) IU/L Alkaline Phosphatase (46-116) U/L Total Protein (6.4-8.2) g/dL Albumin (3.4-5.0) g/dL Globulin (2.6-4.0) g/dL Albumin/Globulin Ratio (0.9-1.6) Urine Color YELLOW Urine Appearance SLT CLOUDY Urine pH 5.0 (5.0-8.0) Ur Specific [place] 1.020 (1.001-1.035) Urine Protein TRACE H (NEGATIVE) mg/dL Urine Glucose (UA) NEGATIVE (NEGATIVE) mg/dL Urine Ketones NEGATIVE (NEGATIVE) mg/dL Urine Occult Blood MODERATE H (NEGATIVE) Urine Nitrite NEGATIVE (NEGATIVE) Urine Bilirubin NEGATIVE (NEGATIVE) Urine Urobilinogen 0.2 (<2.0) EU/dL Ur Leukocyte Esterase LARGE H (NEGATIVE) Urine RBC 5-10 (0-2/HPF) Urine WBC 90-100 (0-5/HPF) Ur Epithelial Cells OCCASIONAL (NONE-FEW) Urine Bacteria FEW (NEGATIVE) 05/22/19 05/22/19 Range/Units 05:50 05:50 WBC 3.90 L (4.0-11.0) K/uL RBC 3.95 L (4.50-5.90) M/uL Hgb 10.0 L (13.0-17.0) g/dL Hct 32.6 L (38.0-50.0) % MCV 82.5 (80.0-98.0) fL MCH 25.3 L (27.0-32.0) pg MCHC 30.7 L (31.0-37.0) g/dL RDW Std Deviation 69.5 H (28.0-62.0) fl RDW Coeff of Eyad 23 H (11.0-15.0) % Plt Count 183 (150-400) K/uL MPV 9.30 (7.40-12.00) fL Neut % (Auto) 64.9 (48.0-80.0) % Lymph % (Auto) 22.3 (16.0-40.0) % Hitchcock % (Auto) 7.4 (0.0-15.0) % Eos % (Auto) 4.6 (0.0-7.0) % Baso % (Auto) 0.8 (0.0-1.5) % Neut # (Auto) 2.5 (1.4-5.7) K/uL Lymph # (Auto) 0.9 (0.6-2.4) K/uL Hitchcock # (Auto) 0.3 (0.0-0.8) K/uL Eos # (Auto) 0.2 (0.0-0.7) K/uL Baso # (Auto) 0.0 (0.0-0.1) K/uL Nucleated RBC % 0.0 /100WBC Nucleated RBCs # 0 K/uL Lactate (0.20-2.00) mmol/L Sodium 136 (136-148) mmol/L Potassium 4.0 (3.5-5.1) mmol/L Chloride 104 (98-107) mmol/L Carbon Dioxide 24.2 (21.0-32.0) mmol/L BUN 14 (7.0-18.0) mg/dL Creatinine 1.0 (0.8-1.3) mg/dL Est Cr Clr Drug Dosing 77.85 mL/min Estimated GFR (MDRD) > 60.0 ml/min Glucose 94 (74-106) mg/dL Calcium 7.9 L (8.5-10.1) mg/dL Total Bilirubin (0.2-1.0) mg/dL AST (15-37) IU/L ALT (14-63) IU/L Alkaline Phosphatase (46-116) U/L Total Protein (6.4-8.2) g/dL Albumin (3.4-5.0) g/dL Globulin (2.6-4.0) g/dL Albumin/Globulin Ratio (0.9-1.6) Urine Color Urine Appearance Urine pH (5.0-8.0) Ur Specific [place] (1.001-1.035) Urine Protein (NEGATIVE) mg/dL Urine Glucose (UA) (NEGATIVE) mg/dL Urine Ketones (NEGATIVE) mg/dL Urine Occult Blood (NEGATIVE) Urine Nitrite (NEGATIVE) Urine Bilirubin (NEGATIVE) Urine Urobilinogen (<2.0) EU/dL Ur Leukocyte Esterase (NEGATIVE) Urine RBC (0-2/HPF) Urine WBC (0-5/HPF) Ur Epithelial Cells (NONE-FEW) Urine Bacteria (NEGATIVE) Jose Results Last 24 Hours: Microbiology 05/21/19 13:45 Anaerobic Blood Culture - Preliminary Blood - Venous 05/21/19 14:00 Anaerobic Blood Culture - Preliminary Blood - Venous - Lab Draw 05/21/19 20:05 Campylobacter Antigen Assay - Final Stool / Feces NEGATIVE CAMPYLOBACTER AG REFERENCE RANGE: NEGATIVE 05/21/19 20:05 Clostridium difficile Toxin A & B - Final Stool / Feces Negative for C.Diff Toxin/AG REFERENCE RANGE: NEGATIVE Stool for WBCs - Final POSITIVE FOR WBC'S REFERENCE RANGE: NO WBC SEEN Med Orders - Current: Current Medications Heparin Sodium (Porcine) (Heparin Sodium) 5,000 units SUBCUT Q8H [facility] Last Admin: 05/22/19 06:17 Dose: 5,000 units Meropenem/Sodium Chloride 1 gm (/ Premix) 50 mls @ 100 mls/hr IV Q8H [facility] Last Admin: 05/22/19 01:48 Dose: 100 mls/hr Vancomycin HCl 1 gm/ Sodium (Chloride) 250 mls @ 250 mls/hr IV Q12H [facility] Last Admin: 05/22/19 06:18 Dose: 250 mls/hr Sodium Chloride (Normal Saline) 1,000 mls @ 125 mls/hr IV ASDIRECTED [facility] Last Admin: 05/22/19 04:14 Dose: 125 mls/hr Vancomycin HCl (Pharmacy To Dose - Vancomycin) 1 dose .XX ASDIRECTED [facility] Discontinued Medications Acetaminophen (Tylenol) 650 mg PO NOW ONE Stop: 05/21/19 14:36 Last Admin: 05/21/19 15:24 Dose: 650 mg Sodium Chloride (Normal Saline) 1,000 mls @ 999 mls/hr IV .Bolus ONE Stop: 05/21/19 14:49 Last Admin: 05/21/19 14:21 Dose: 999 mls/hr Levofloxacin/Dextrose 500 mg/ (Premix) 100 mls @ 100 mls/hr IV ONETIME ONE Stop: 05/21/19 15:08 Last Admin: 05/21/19 14:22 Dose: 100 mls/hr - Exam General: Alert, Oriented Lungs: Clear to Auscultation, Normal Respiratory Effort Cardiovascular: Regular Rate, Regular Rhythm GI/Abdominal Exam: Normal Bowel Sounds, Soft, Non-Tender Extremities: Non-Tender, No Pedal Edema - Problem List Review Problem List Initiated/Reviewed/Updated: Yes - My Orders Last 24 Hours: My Active Orders 05/21/19 17:45 Pharmacy to Dose - Vancomycin 1 dose .XX ASDIRECTED 05/21/19 17:46 Up ad Teresa [RC] ASDIRECTED Resuscitation Status Routine 05/21/19 17:47 Antiembolic Devices [RC] PER UNIT ROUTINE Oxygen Therapy [RC] PRN VTE/DVT Education [RC] PER UNIT ROUTINE Vital Signs [RC] Q4H Sequential Compression Device [OM.PC] Per Unit Routine 05/21/19 17:48 Isolation [COMM] Stat 05/21/19 17:49 Obtain Past Medical Record [OM.PC] Routine 05/21/19 18:00 Meropenem Premix [Meropenem] 1 gm Premix Bag 1 bag IV Q8H Sodium Chloride 0.9% [Normal Saline] 1,000 ml IV ASDIRECTED 05/21/19 19:00 Vancomycin 1 gm Sodium Chloride 0.9% [Normal Saline (AdvBag)] 250 ml IV Q12H 05/21/19 20:05 CULTURE STOOL + CAMPY+SHIGATOX [RM] Routine 05/21/19 22:00 Heparin Sodium 5,000 units SUBCUT Q8H 05/21/19 Dinner Regular Diet [DIET] 05/23/19 05:11 BASIC METABOLIC PANEL,BMP [CHEM] AM CBC WITH AUTO DIFF [HEME] AM - Plan Plan:: 64 yo male with history of colon cancer admitted for sepsis from UTI. Sepsis is resolving. CT scan of abdomen showed inflamatory/neoplastic process involving the sigmoid colon and mild bilateral hydronephrosis. Pyelonephritis with bacteremia: on vancomycin and meropenem. Cultures pending. I have call Dr. Contreras and he will look at CT scans. Awaiting records from [facility].
[2019-05-23] MEDS: Meropenem Premix 1 GM in Premix Bag 1 BAG IV SCH ×2 (01:35→10:23)
[2019-05-23] MEDS ORDERED: oxyCODONE 5 MG Tab PO PRN (03:20)
[2019-05-23] MEDS ORDERED: Sodium Chloride 0.9% 1,000 ML IV SCH (03:30)
[2019-05-23] MEDS: Heparin Sodium 5,000 Units/ML Vial SUBCUT SCH (06:18)
[2019-05-23 07:01] LABS: BLOOD UREA NITROGEN,BUN 10 mg/dL (7.0-18.0); CHLORIDE,CL 107 mmol/L (98-107); GLUCOSE RANDOM 98 mg/dL (74-106); POTASSIUM,K 3.9 mmol/L (3.5-5.1); SODIUM,NA 137 mmol/L (136-148)
[2019-05-23] MEDS: Sodium Chloride 0.9% 1,000 ML IV SCH (07:43)
--- NOTE | 2019-05-23 09:24 | PCM.DCSUM1 ---
Discharge Summary - Hospital Course HPI Initial Comments: Admitted for fever, urinary tract infection Diagnosis: Stroke: No - Discharge Data Discharge Date: 05/23/19 Discharge Disposition: Home, Self-Care 01 Condition: Good - Referral to Home Health Primary Care Physician: PCP None - Discharge Diagnosis/Problem(s) (1) UTI (urinary tract infection) SNOMED Code(s): 25466471 ICD Code: N39.0 - URINARY TRACT INFECTION, SITE NOT SPECIFIED Status: Resolved Priority: High Qualifiers: Urinary tract infection type: acute pyelonephritis Qualified Code(s): N10 - Acute pyelonephritis - Patient Summary/Data Hospital Course: The patient is a 64-year-old gentleman who had been admitted to acute hospitalization on May 21, 2019 secondary to fever. 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 The patient on admission was noted to have a urine which was positive for large amount of leukocyte esterase, WBCs and moderate occult blood. Because of this the patient was started initially on vancomycin and gram IV every 12 hours with pharmacy to dose. He is also started on meropenem. The patient also had been noted to have pansensitive Escherichia coli as a part of his urine culture. The patient also had blood cultures which were positive for gram-negative rods that were reported out as the same strain of Escherichia coli prior to patient discharge. The patient had been discharged on ciprofloxacin at 500 mg by mouth twice a day for 14 days. Patient is to follow-up with his primary care physician with regards to the positive blood culture. Initially the patient had presented with leukopenia which was mild and this had remained stable. He also had a lactic with this elevated at 2.7 and this had normalized later in the afternoon with fluid resuscitation. The patient's basic metabolic panel was also normal. The patient and felt like he could go home safely. The patient had denied any abdominal pain. His ostomy was back to normal. The patient has been recommended to continue with his diet as tolerated. He is also to have activity as tolerated. The patient has been recommended to follow-up with colorectal surgeons and his primary care physician with oncology. He has been hemodynamically stable, pain-free and is discharged from acute hospitalization with the recommendations listed above. - Patient Instructions Diet: Heart Healthy Diet Activity: As Tolerated Notify Provider of: Fever, Increased Pain, Swelling and Redness - Discharge Plan *PRESCRIPTION DRUG MONITORING PROGRAM REVIEWED*: No *COPY OF PRESCRIPTION DRUG MONITORING REPORT IN PATIENT TUCKER: No Prescriptions/Med Rec: Ciprofloxacin HCl [Cipro] 500 mg PO BID #14 tablet Home Medications: Home Meds Ondansetron HCl [Zofran] 8 mg PO Q8H PRN 05/21/19 [History] Prochlorperazine Maleate [Compazine] 10 mg PO Q6H PRN 05/21/19 [History] Ciprofloxacin HCl [Cipro] 500 mg PO BID #14 tablet 05/23/19 [Rx] Patient Handouts: Pyelonephritis, Adult, [id number], Ciprofloxacin tablets Referrals: Saroj Ramirez MD [Physician] - (Please call the clinic on Friday for appointment, we are unable to call due to today is weekend.) - Discharge Summary/Plan Comment DC Time >30 min.: Yes - General Info Date of Service: 05/23/19 Admission Dx/Problem (Free Text: Admitted secondary to urinary tract infection, sepsis, history of colon cancer Subjective Update: The patient is doing well. He feels like he can safely go home. Functional Status: Reports: Pain Controlled - Review of Systems General: Reports: No Symptoms HEENT: Reports: No Symptoms Pulmonary: Reports: No Symptoms Cardiovascular: Reports: No Symptoms Gastrointestinal: Reports: No Symptoms Genitourinary: Reports: No Symptoms Musculoskeletal: Reports: No Symptoms Skin: Reports: No Symptoms Neurological: Reports: No Symptoms Psychiatric: Reports: No Symptoms - Patient Data Vitals - Most Recent: Last Vital Signs Temp 36.6 C 05/23/19 08:00 Pulse 61 05/23/19 08:00 Resp 20 05/23/19 08:00 BP 121/71 05/23/19 08:00 Pulse Ox 96 05/23/19 08:00 Weight - Most Recent: 73.754 kg I&O - Last 24 hours: Intake & Output 05/22/19 05/23/19 05/23/19 22:59 06:59 14:59 Intake Total 250 2045 250 Output Total 2325 Balance 250 -280 250 Lab Results - Last 24 hrs: Laboratory Results - last 24 hr 05/21/19 05/21/19 05/23/19 Range/Units 13:45 13:45 06:31 WBC 3.44 L 2.98 L (4.0-11.0) K/uL RBC 4.69 3.91 L (4.50-5.90) M/uL Hgb 11.9 L 10.0 L (13.0-17.0) g/dL Hct 38.6 32.1 L (38.0-50.0) % MCV 82.3 82.1 (80.0-98.0) fL MCH 25.4 L 25.6 L (27.0-32.0) pg MCHC 30.8 L 31.2 (31.0-37.0) g/dL RDW Std Deviation 69.7 H 66.8 H (28.0-62.0) fl RDW Coeff of Eyad 24 H 23 H (11.0-15.0) % Plt Count 227 170 (150-400) K/uL MPV 9.00 9.20 (7.40-12.00) fL Neut % (Auto) 73.8 46.7 L (48.0-80.0) % Lymph % (Auto) 15.4 L 39.6 (16.0-40.0) % [place] % (Auto) 3.5 6.7 (0.0-15.0) % Eos % (Auto) 6.4 6.0 (0.0-7.0) % Baso % (Auto) 0.9 1.0 (0.0-1.5) % Neut # (Auto) 2.5 1.4 (1.4-5.7) K/uL Lymph # (Auto) 0.5 L 1.2 (0.6-2.4) K/uL [place] # (Auto) 0.1 0.2 (0.0-0.8) K/uL Eos # (Auto) 0.2 0.2 (0.0-0.7) K/uL Baso # (Auto) 0.0 0.0 (0.0-0.1) K/uL Nucleated RBC % 0.0 0.0 /100WBC Nucleated RBCs # 0 0 K/uL Sodium 137 (136-148) mmol/L Potassium 4.2 (3.5-5.1) mmol/L Chloride 102 (98-107) mmol/L Carbon Dioxide 23.6 (21.0-32.0) mmol/L BUN 13 (7.0-18.0) mg/dL Creatinine 1.1 (0.8-1.3) mg/dL Est Cr Clr Drug Dosing 71.82 mL/min Estimated GFR (MDRD) > 60.0 ml/min Glucose 95 (74-106) mg/dL Calcium 8.6 (8.5-10.1) mg/dL Total Bilirubin 0.3 (0.2-1.0) mg/dL AST 20 (15-37) IU/L ALT 18 (14-63) IU/L Alkaline Phosphatase 100 (46-116) U/L Total Protein 6.9 (6.4-8.2) g/dL Albumin 2.7 L (3.4-5.0) g/dL Globulin 4.2 H (2.6-4.0) g/dL Albumin/Globulin Ratio 0.6 L (0.9-1.6) Vancomycin Trough (5.0-10.0) ug/mL 05/23/19 05/23/19 Range/Units 06:31 06:31 WBC (4.0-11.0) K/uL RBC (4.50-5.90) M/uL Hgb (13.0-17.0) g/dL Hct (38.0-50.0) % MCV (80.0-98.0) fL MCH (27.0-32.0) pg MCHC (31.0-37.0) g/dL RDW Std Deviation (28.0-62.0) fl RDW Coeff of Eyad (11.0-15.0) % Plt Count (150-400) K/uL MPV (7.40-12.00) fL Neut % (Auto) (48.0-80.0) % Lymph % (Auto) (16.0-40.0) % [place] % (Auto) (0.0-15.0) % Eos % (Auto) (0.0-7.0) % Baso % (Auto) (0.0-1.5) % Neut # (Auto) (1.4-5.7) K/uL Lymph # (Auto) (0.6-2.4) K/uL [place] # (Auto) (0.0-0.8) K/uL Eos # (Auto) (0.0-0.7) K/uL Baso # (Auto) (0.0-0.1) K/uL Nucleated RBC % /100WBC Nucleated RBCs # K/uL Sodium 137 (136-148) mmol/L Potassium 3.9 (3.5-5.1) mmol/L Chloride 107 (98-107) mmol/L Carbon Dioxide 23.0 (21.0-32.0) mmol/L BUN 10 (7.0-18.0) mg/dL Creatinine 0.8 (0.8-1.3) mg/dL Est Cr Clr Drug Dosing 97.31 mL/min Estimated GFR (MDRD) > 60.0 ml/min Glucose 98 (74-106) mg/dL Calcium 8.2 L (8.5-10.1) mg/dL Total Bilirubin (0.2-1.0) mg/dL AST (15-37) IU/L ALT (14-63) IU/L Alkaline Phosphatase (46-116) U/L Total Protein (6.4-8.2) g/dL Albumin (3.4-5.0) g/dL Globulin (2.6-4.0) g/dL Albumin/Globulin Ratio (0.9-1.6) Vancomycin Trough 7.2 (5.0-10.0) ug/mL AGNES Results - Last 24 hrs: Microbiology 05/21/19 13:45 Anaerobic Blood Culture - Preliminary Blood - Venous 05/21/19 14:00 Anaerobic Blood Culture - Preliminary Blood - Venous - Lab Draw 05/21/19 20:05 Stool Culture - Final Stool / Feces NO SALMONELLA, SHIGELLA,OR E.COLI O157 ISOLATED Campylobacter Antigen Assay - Final NEGATIVE CAMPYLOBACTER AG REFERENCE RANGE: NEGATIVE Shiga Toxin I - Final NEGATIVE FOR SHIGA TOXIN 1 REFERENCE RANGE: NEGATIVE Shiga Toxin II - Final NEGATIVE FOR SHIGA TOXIN 2 REFERENCE RANGE: NEGATIVE 05/21/19 14:35 Urine Culture - Final Urine, Bladder Escherichia Coli Normal Urogenital Che Med Orders - Current: Current Medications Heparin Sodium (Porcine) (Heparin Sodium) 5,000 units SUBCUT Q8H [facility] Last Admin: 05/23/19 06:18 Dose: 5,000 units Meropenem/Sodium Chloride 1 gm (/ Premix) 50 mls @ 100 mls/hr IV Q8H [facility] Last Admin: 05/23/19 01:35 Dose: 100 mls/hr Sodium Chloride (Normal Saline) 1,000 mls @ 125 mls/hr IV ASDIRECTED [facility] Last Admin: 05/23/19 07:43 Dose: 125 mls/hr Vancomycin HCl 1 gm/ Sodium (Chloride) 250 mls @ 250 mls/hr IV Q12H [facility] Last Admin: 05/23/19 07:40 Dose: 250 mls/hr Vancomycin HCl (Pharmacy To Dose - Vancomycin) 1 dose .XX ASDIRECTED [facility] Discontinued Medications Acetaminophen (Tylenol) 650 mg PO NOW ONE Stop: 05/21/19 14:36 Last Admin: 05/21/19 15:24 Dose: 650 mg Sodium Chloride (Normal Saline) 1,000 mls @ 999 mls/hr IV .Bolus ONE Stop: 05/21/19 14:49 Last Admin: 05/21/19 14:21 Dose: 999 mls/hr Levofloxacin/Dextrose 500 mg/ (Premix) 100 mls @ 100 mls/hr IV ONETIME ONE Stop: 05/21/19 15:08 Last Admin: 05/21/19 14:22 Dose: 100 mls/hr Vancomycin HCl 1 gm/ Sodium (Chloride) 250 mls @ 250 mls/hr IV Q12H [facility] Last Admin: 05/22/19 06:18 Dose: 250 mls/hr - Exam Quality Assessment: Denies: Supplemental Oxygen General: Reports: Alert, Oriented, Cooperative, No Acute Distress HEENT: Reports: Pupils Equal, Pupils Reactive, EOMI, Mucous Membr. Moist/Lithium Neck: Reports: Supple, Trachea Midline Lungs: Reports: Clear to Auscultation, Normal Respiratory Effort Cardiovascular: Reports: Regular Rate, Regular Rhythm GI/Abdominal Exam: Normal Bowel Sounds, Soft, Non-Tender, No Distention Back Exam: Reports: Normal Inspection, Full Range of Motion Extremities: Normal Inspection, Normal Range of Motion, No Pedal Edema Skin: Reports: Warm, Dry, Intact Neurological: Reports: No New Focal Deficit Psy/Mental Status: Reports: Alert, Normal Affect, Normal Mood
== END 2019-05-23 12:00 | disposition home or self-care (01) ==
LOC: MW.ED 13:34 → MW.MS 15:37
PROVIDERS: ADMIT Internal Medicine; ATTEND Internal Medicine
DX: N39.0 Urinary tract infection, site not specified (principal); A41.9 Sepsis, unspecified organism; Z85.038 Personal history of other malignant neoplasm of large intestine; Z90.49 Acquired absence of other specified parts of digestive tract; Z93.3 Colostomy status
CPT/HCPCS: 36415; 71045; 74176; 80048; 80053; 80202; 81001; 83605; 83630; 85025; 87040; 87046; 87086; 87088; 87186; 87324; 87899; 96365; 99284; A9270; J1642; J1644; J1956; J2185; J3370; J7040; J7050; 96361; 96366; 96367; 96372; 96376; 99283; G0378